=== PATIENT | female | born 1985 | race Caucasian/White ===

== ENCOUNTER 2022-03-06 10:12 | Emergency (ER) | payer SELFPAY ==
[2022-03-06 12:15] LABS: CHLORIDE,CL 103 mmol/L (98-107); SODIUM,NA 138 mmol/L (136-145)
[2022-03-06 12:18] LABS: ANION GAP 14.7 mmol/L (5-15)
[2022-03-06 13:17] LABS: BUPRENORPHINE,URINE NEGATIVE (NEGATIVE); MARIJUANA,URINE NEGATIVE (NEGATIVE); METHYLENEDIOXYMETHAMP,UR NEGATIVE (NEGATIVE); PHENCYCLIDINE,URINE NEGATIVE (NEGATIVE)
== END 2022-03-06 15:06 | disposition home or self-care (01) ==
LOC: VM.ED 10:12
DX: T68.XXXA Hypothermia, initial encounter (principal)
CPT/HCPCS: 36415; 80053; 80305-QW; 80307; 81003; 83735; 85025; 99283; 99284